=== PATIENT | female | born 1965 | race Caucasian/White ===

== ENCOUNTER 2018-09-18 02:45 | Emergency (ER) | payer MEDICAID ==
[~2018-09-18] VITALS: Ht 157.5 cm; Wt 64.0 kg
[2018-09-18 05:01] VITALS: BP 166/63
== END 2018-09-18 05:02 | disposition left against medical advice (07) ==
LOC: ER 02:45
DX: Z53.21 Procedure and treatment not carried out due to patient leaving prior to being seen by health care provider (principal)
CPT/HCPCS: 71045; 93005; Z7610

== ENCOUNTER 2018-10-18 15:15 | Emergency (ER) | payer MEDICAID ==
[~2018-10-18] VITALS: Ht 149.9 cm; Wt 46.0 kg
[2018-10-18 16:02] LABS: BASOPHILS % 1.2 % (0.0-2.0); HEMOGLOBIN. 12.2 g/dL (12.0-16.0); LYMPHOCYTES % 20.8 % (20.0-50.0); MEAN CORPUSCULAR HEMOGLOBIN 32.9 pg (28.0-32.0); MEAN PLATELET VOLUME 8.1 fl (7.4-10.4); MONOCYTES % 7.6 % (2.0-8.0); NEUTROPHILS % 64.4 % (40.0-76.0); PLATELET 171 x1000/uL (130-400); RED BLOOD CELL COUNT 3.71 mill/uL (4.2-5.4); RED CELL DISTRIBUTION WIDTH 14.9 % (11.6-14.6)
[2018-10-18 16:10] LABS: CHLORIDE 103 mEq/L (98-107)
[2018-10-18 17:30] VITALS: BP 146/63
== END 2018-10-18 18:51 | disposition left against medical advice (07) ==
LOC: ER 15:15 → EDBEDREQTM 17:42 → EDBEDREQ 17:42 → ER 18:51 → CANRESERV 21:21 → ENRESERV 21:21 → CANBEDREQ 21:25
DX: R07.89 Other chest pain (principal); E11.22 Type 2 diabetes mellitus with diabetic chronic kidney disease; I12.0 Hypertensive chronic kidney disease with stage 5 chronic kidney disease or end stage renal disease; N18.6 End stage renal disease; E03.9 Hypothyroidism, unspecified; Z99.2 Dependence on renal dialysis
CPT/HCPCS: 36415; 71045; 83880; 84484; 93005; 99284